=== PATIENT | male | born 2000 | race Caucasian/White ===

== ENCOUNTER 2018-03-03 11:56 | Emergency (ER) | payer OTHER ==
[~2018-03-03] VITALS: Ht 177.8 cm; Wt 79.4 kg
[2018-03-03 12:07] VITALS: BP 132/81
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
== END 2018-03-03 13:18 ==
LOC: ERH 11:56
DX: S00.83XA Contusion of other part of head, initial encounter (principal); Y04.8XXA Assault by other bodily force, initial encounter; Y92.9 Unspecified place or not applicable; Y93.9 Activity, unspecified